=== PATIENT | female | born 1965 | race Caucasian/White ===

== ENCOUNTER 2021-04-19 15:57 | Emergency (ER) | payer OTHER ==
[~2021-04-19] VITALS: Ht 154.9 cm; Wt 47.0 kg
[2021-04-19 18:32] VITALS: BP 112/60
== END 2021-04-19 18:32 | disposition home or self-care (01) | DRG 204 ==
LOC: ED 15:57
DX: R05 Cough (principal); R09.81 Nasal congestion; R51.9 Headache, unspecified; Z20.822 Contact with and (suspected) exposure to COVID-19